=== PATIENT | female | born 1995 | race Caucasian/White ===

== ENCOUNTER 2019-08-19 14:17 | Inpatient (IN) ==
[2019-08-19] MEDS ORDERED: LIDOCAINE HCL 50 ML VIAL PERI PRN (14:33)
[2019-08-19] MEDS ORDERED: RINGER'S SOLUTION,LACTATED 1,000 ML IV PRN (14:33)
[2019-08-19] MEDS ORDERED: OXYTOCIN/DEXTROSE 5%-WATER 30 UNITS/500 ML BAG IV ONE ×2 (14:33→23:26)
[2019-08-19] MEDS ORDERED: BUTORPHANOL TARTRATE 2 MG/ML VIAL IV PRN ×2 (14:33)
[2019-08-19] MEDS ORDERED: ONDANSETRON 4 MG TAB.RAPDIS PO PRN (14:33)
[2019-08-19] MEDS ORDERED: RINGER'S SOLUTION,LACTATED 1,000 ML IV ONE (14:33)
--- NOTE | 2019-08-19 15:10 | HP ---
Chief Complaint - Chief Complaint Date of Service: 08/19/19 Time of Service: 15:01 Chief Complaint: Desires elective IOL History of Present Illness: 24 year old at 39w 5d who presented for a routine obstetrical visit and requests elective IOL. She reports irregular contractions. She denies vaginal bleeding or loss of fluid. Fetus is active. Medical History (Last Reviewed 08/19/19 @ 15:04 by Paty Carrillo MD) Anemia Onset Date: 05/18/19 w/ Anxiety Onset Date: ~2006 No current medications as of 01/12/19 Body piercing Onset Date: Unknown Depression Onset Date: ~2006 No current medications as of 01/12/19 Tattoos Onset Date: Unknown Wears contact lenses Onset Date: Unknown hemorrhage Onset Date: ~05/2017 w/resulting anemia; no transfusions. Whooping cough Onset Date: Unknown as a toddler Gastric ulcer Onset Date: ~2008 No current issues, no current medications Surgical History: Surgical History (Last Reviewed 08/19/19 @ 15:04 by Paty Carrillo MD) History of tonsillectomy and adenoidectomy Onset Date: ~2010 Family History: Family History (Last Reviewed 08/19/19 @ 15:04 by Paty Carrillo MD) Mother Cancer lung cancer w/mets Father CHF (congestive heart failure) Myocardial infarction Schizophrenia Mental problems Grandmother Hypoglycemia Grandfather COPD (chronic obstructive pulmonary disease) Social History: (Last Reviewed 08/19/19 @ 15:04 by Paty Carrillo MD) Social History: adopted: Yes adopted comment: Maternal Grandparents care home: No Marital status: household members: spouse, children number of children: 1 current occupational status: employed 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 current occupational exposures/hazards: No Highest education level completed: some college, no degree Sexually Active: Yes Service: No Tobacco: Smoking Status: Former smoker Alcohol: alcohol intake: current alcohol intake frequency: a few times a month details: No alcohol since + UPT Substance Use: substance use type: does not use Dietary Habits: caffeine: Yes caffeine comment: 1-2/day Type: coffee, carbonated beverages, tea Exercise: frequency: does not exercise Heidi/Jew: agree to transfusion: Yes Review Of Systems (GEN) - Review of Systems Generalized/Overall Review: Present: No Symptoms Reported Misc: All systems neg except as marked Allergies/Adverse Reactions: Allergies Allergy/AdvReac Type Severity Reaction Status Date / Time Sulfa (Sulfonamide Allergy Unknown Verified 08/19/19 13:24 Antibiotics) codeine AdvReac Nausea and Verified 08/19/19 13:24 vomiting Home Medications: HOME MEDICATIONS ferrous sulfate 325 mg (65 mg iron) tablet 325 mg PO DAILY #30 tab 05/18/19 [Last Taken Unknown] Vits96/Iron Fum/Folic [ S] 1 tab PO DAILY 07/01/19 [Last Taken Unknown] Exam - Exam Vital Signs: 36.7 92 20 113/64 97% RA Constitutional: Present: Alert, Oriented x3, Cooperative, No distress ENT Exam: Present: hearing grossly normal Eye Exam: bilateral eye: normal inspection Neck: Present: normal inspection Back Exam: Present: normal inspection, no CVA tenderness, no vertebral tenderness Breasts: Present: Exam deferred Respiratory: Present: lungs clear, normal breath sounds Cardiovascular/Chest: Present: regular rate, rhythm Abdomen: Present: Normal bowel sounds, soft, nontender, nondistended /Rectal: Present: Other - 2/70/-2 AROM for clear fluid Extremity: Present: non-tender, no calf tenderness Skin Exam: Present: normal color, warm/dry, no cyanosis Appearance: Present: appropriate appearance Eye contact: Present: cooperative, good eye contact, normal speech Thoughts: Present: normal thought pattern Assessment/Plan - Narrative Narrative: 24 year old at 39w 5d Proceed with elective IOL. AROM for clear fluid. Pitocin PRN GBS negative: prophylaxis not indicated - Assessment/Plan (1) 39 weeks gestation of Problem: Acute
[2019-08-19 16:21] LABS: Cocaine Ur Negative (NEGATIVE); Urine Barbiturate Negative (NEGATIVE); Urine Benzodiazepines Negative (NEGATIVE); Urine Opiates Negative (NEGATIVE); Urine PCP Negative (NEGATIVE); Urine THC Negative (NEGATIVE)
--- NOTE | 2019-08-19 23:25 | OR ---
Operative Report - Dictated Report Narrative: Date of delivery: 08/19/2019 Time of delivery: 2305 Gender: male weight: 3148 grams APGARS: 8/8 Procedure: Description of the procedure: The patient is a 24 year old at 39w 5d who presented to L&D for an elective IOL. She was ruptured followed by pitocin administration at 2 milliunits/minute. She progressed to complete dilation. She delivered a viable male infant in SWETHA presentation over an intact perineum. There was a tight nuchal cord which was unable to be reduced and thus it was cut at the perineum. The shoulders delivered spontaneously followed by the rest of the infant. Cord blood was collected. The placenta was delivered by expression and appeared intact. EBL: 100 mL Complications: none Specimens: none History for MU Definition: * The number of deliveries resulting in a live the patient experienced prior to current hospitalization * The previous delivery of live twins or any live multiple gestation is considered one live event. *If primagravida or nulliparous is documented select zero for the number of previous live births. Live Events: 1
[2019-08-19] MEDS ORDERED: BISACODYL 10 MG SUPP.RECT RC PRN (23:26)
[2019-08-19] MEDS ORDERED: SENNOSIDES 8.6 MG TABLET PO PRN (23:26)
[2019-08-19] MEDS ORDERED: BENZOCAINE/MENTHOL 81 SPRAY CAN TP PRN (23:26)
[2019-08-19] MEDS ORDERED: ACETAMINOPHEN 500 MG TABLET PO PRN (23:26)
[2019-08-19] MEDS ORDERED: HYDROCORTISONE 30 APPL TUBE TP PRN (23:26)
[2019-08-19] MEDS ORDERED: diphenhydrAMINE HCL 25 MG CAPSULE PO PRN (23:26)
[2019-08-19] MEDS ORDERED: GLYCERIN/WITCH HAZEL LEAF 40 APPL BOX TP PRN (23:26)
[2019-08-19] MEDS: IBUPROFEN 800 MG TABLET PO PRN (23:51)
--- NOTE | 2019-08-20 08:00 | PN ---
Subjective - Date and Time Seen Date: 08/20/19 Time: 07:59 Subjective Narrative: Patient without complaints Objective Objective Narrative: See vital signs - Review of Systems Generalized/Overall Review: Reports: No Symptoms Reported Misc: All systems neg except as marked - Vitals Vitals: Last Vital Signs Temp 36.7 C 08/20/19 06:57 Pulse 64 08/20/19 06:57 Resp 18 08/20/19 06:57 BP 108/69 08/20/19 06:57 Pulse Ox 98 08/20/19 06:57 - Exam Constitutional: Present: Alert, Oriented x3, Cooperative Abdomen: Present: soft, nontender, nondistended - fundus is firm Appearance: Present: appropriate appearance Eye contact: Present: cooperative Thoughts: Present: normal thought pattern Assessment/Plan Plan Narrative: PPD 1 s/p Doing well Discharge tomorrow - Problems/Diagnosis (1) 39 weeks gestation of Problem: Acute
[2019-08-20] MEDS: DOCUSATE SODIUM 100 MG CAPSULE PO SCH (11:52)
[2019-08-20] MEDS: IBUPROFEN 800 MG TABLET PO PRN ×2 (11:52→18:43)
[2019-08-21] MEDS: DOCUSATE SODIUM 100 MG CAPSULE PO SCH ×2 (01:26→09:37)
[2019-08-21] MEDS: IBUPROFEN 800 MG TABLET PO PRN (07:11)
[2019-08-21 07:18] VITALS: BP 123/75
--- NOTE | 2019-08-21 13:16 | PN ---
Subjective - Date and Time Seen Date: 08/21/19 Time: 13:16 Objective - Vitals Vitals: Last Vital Signs Temp 36.5 C 08/21/19 07:16 Pulse 68 08/21/19 07:16 Resp 18 08/21/19 07:16 BP 123/75 08/21/19 07:16 Pulse Ox 96 08/21/19 07:16 Patient denies complaints. Breast-feeding Lochia wnl abdomen - soft, nontender Uterus -firm, at umbilicus - 2 no calf tenderness Impression: day #2 - s/p spontaneous vaginal delivery. Plan: Routine discharge instructions
[2019-08-22] MEDS ORDERED: PRENATAL VITS96/IRON FUM/FOLIC 1 TAB TABLET PO SCH (09:00)
== END 2019-08-21 13:45 | disposition home or self-care (01) | DRG 807 ==
LOC: OB 14:17
PROVIDERS: ADMIT Obstetrics & Gynecology; ATTEND Obstetrics & Gynecology
CPT/HCPCS: 59025; 80307; 86850